=== PATIENT | female | born 1960 | race Caucasian/White ===

== ENCOUNTER 2022-04-13 11:45 | Outpatient (CLI) | payer OTHER, SELFPAY ==
--- NOTE | 2022-04-13 12:35 | ECG_ITS ---
Measurements Intervals [place] Rate: 72 P: 56 SD: 142 QRS: 31 QRSD: 101 T: 42 QT: 373 QTc: 408 Interpretive Statements SINUS RHYTHM BASELINE ARTIFACT- I, III, AVR, AVL, AVF, V1-V6 NORMAL ECG NO PREVIOUS ECG AVAILABLE FOR COMPARISON Electronically Signed On 04-13-2022 14:11:29 PRODUCER ASSISTANT by Hamzah Hinson D.O.
[2022-04-13 13:09] LABS: Basophils Absolute Auto 0.1 K/mm3 (0.0-0.1); Basophils Percent Auto 0.7 % (0.2-1.2); Eosinophils Absolute Auto 0.2 K/mm3 (0-0.3); Eosinophils Percent Auto 2.3 % (0-4.4); Hematocrit 43.8 % (37.0-47.0); Hemoglobin 14.4 g/dL (12.0-15.0); Immature Granulocyte Absolute 0.03 K/mm3 (0.00-0.031); Immature Granulocyte Percent A 0.3 % (0-0.5); Lymphocytes Absolute Auto 2.32 K/mm3 (0.9-3.2); Lymphocytes Percent Auto 26.8 % (18.3-44.2); Mean Corpuscular HGB Conc 32.9 g/dl (32-36); Mean Corpuscular Volume 94.2 fl (80-100); Monocytes Absolute Auto 0.5 K/mm3 (0.1-0.6); Monocytes Percent Auto 6.1 % (2.6-8.5); Neutrophils Absolute Auto 5.5 K/mm3 (1.3-6.7); Neutrophils Percent Auto 63.8 % (45.5-73.1); Platelet Count Result 296 k/mm3 (150-375); Red Blood Count 4.65 M/mm3 (4.2-5.4); Red Cell Distribution Width 13.2 % (11.5-14.5); White Blood Count 8.7 K/mm3 (4.5-10.0)
[2022-04-13 13:22] LABS: Alanine Aminotransferase 20 U/L (6-35); Albumin Level 4.6 g/dL (3.5-5.1); Alkaline Phosphatase 128 U/L (38-126); Anion Gap 9 mmol/L (8-16); Aspartate Amino Transferase 22 U/L (14-36); Bilirubin,Total 0.4 mg/dL (0.2-1.3); Blood Urea Nitrogen 23 mg/dL (7-17); Calcium 9.5 mg/dL (8.4-10.2); Carbon Dioxide 22 mmol/L (22-30); Chloride 107 mmol/L (98-107); Estimated Glomerular Filt Rate > 60; Glucose 91 mg/dL (65-110); Potassium 3.9 mmol/L (3.4-5.0); Sodium 138 mmol/L (137-145)
[2022-04-13 13:37] LABS: Prothrombin Time 12.6 Seconds (11.1-14.7)
[2022-04-13 13:39] LABS: Partial Thromboplastin Time 31.3 SECONDS (22.3-36.8)
== END 2022-04-13 11:46 | disposition home or self-care (01) ==
LOC: ANHSURGERY 11:51
PROVIDERS: Visit Provider Urology
DX: N81.9 Female genital prolapse, unspecified (principal); Z01.818 Encounter for other preprocedural examination
CPT/HCPCS: 36415; 80053; 85025; 85610; 85730; 86850; 86900; 86901; 87086; 93005

== ENCOUNTER 2022-04-26 00:33 | Day surgery (SDC) | payer OTHER, SELFPAY ==
--- NOTE | 2022-04-13 11:46 | PC.NURSE ---
PRE-OP INSTRUCTIONS, PLEASE READ CAREFULLY Report to the Outpatient Waiting Room, entrance under the green pavilion located off [facility], at time _0600_ on date _04/26/22_. Planned Procedure Time: _0730_. Time changes happen often and if your time is changed the preop area will call you the afternoon before. - You and your visitor will be asked to self-screen and do not enter if you have any COVID symptoms. - Only one visitor is requested with a max of two and NO children visitors are allowed at this time. - The patient visitor may be requested to leave or wait in car when not with patient due to distancing restrictions. - A mask is optional within the hospital. Patients may have clear liquids (water, carbonated beverages, clear teas, apple juice) until 3 hours prior to surgery (0430 AM) with a maximum of 20 ounces. - No food from midnight until time of surgery Take the following medications with a SIP of water the morning of surgery: _LEVOTHYROXINE, FLOVENT INHALER, ALBUTEROL INHALER IF NEEDED_ Medications to discontinue per DR. JEAN -_IBUPROFEN, VITAMINS 7 DAYS PRIOR TO SURGERY, Date to take last dose 04/18/22_ Please no make-up, nail [place], hairspray, perfume, deodorant, or body powder the day of surgery. No jewelry (including any body piercings) or valuables the day of surgery, leave them at home. Please take a shower or bath the night before, or the morning of, surgery with an antibacterial soap. Wear comfortable, loose fitting clothing. - Jewelry must be removed prior to entering the operating room. Rings and piercings that are not removed may be cut off. - The hospital will not accept responsibility for valuables. - Please leave all valuables, including medications, at home the day of surgery. If you are going home after surgery, a licensed electric screw driver operator must drive you home. - NO public transportation without another adult if you receive anesthesia. - We recommend that an adult stay with you for 24 hours following discharge. - We also recommend that you do not drive, make important decision, drink alcoholic beverages, or take any drugs that were not prescribed by your health care provider for at least 24 hours after your discharge time. Follow any additional instructions given to you from your surgeon. If you or anyone in your household have experienced Covid symptoms in the past week, please notify your surgeon or the nurse liaison at the phone number below for possible testing. Instructions given to ___PT and asked if any additional questions and then verbalized understanding. Patient advised to call surgeon office or pre surgery nurse liaison [phone] if any additional questions.
[2022-04-13 12:11] VITALS: BP 128/84; PULSE 74; RESP 20; TEMP 36.8; O2SAT 100; BMI 28.6
--- NOTE | 2022-04-23 10:14 | PM.IMHP ---
H&P: HPI History of Present Illness Date/Time: 04/23/22 10:14 Chief Complaint: Prolapse and incontinence Narrative: 62-year-old female with posthysterectomy vault prolapse as well as intrinsic sphincter deficiency Review of Systems Review of Systems: All systems reviewed & are unremarkable except as noted in HPI and below PMFSH Social History Social History Smoking packs per day: 0.75 Smoking cigarettes per day: 15.0 Years smoked: 46 Smoking pack-years: 34.50 Smoking status: Current every day smoker Tobacco type: cigarettes Second hand tobacco smoke exposure: Yes Alcohol intake: never Substance use: never Substance use type: does not use Spiritual care concerns: No Meds Home Medications and Allergies Home Medications Medication Instructions Recorded Confirmed Type albuterol sulfate 90 mcg/actuation 2 puff inhalation QID PRN Wheezing 04/13/22 04/13/22 History aerosol inhaler ascorbic acid (vitamin C) 1,000 mg 1 g PO DAILY 04/13/22 04/13/22 History tablet (Vitamin C) fluticasone propionate 110 2 puff inhalation BID 04/13/22 04/13/22 History mcg/actuation HFA aerosol inhaler (Flovent HFA) ibuprofen 200 mg capsule 800 mg PO BID PRN Pain 04/13/22 04/13/22 History levothyroxine 88 mcg tablet 88 mcg QAM 04/13/22 04/13/22 History ukcvgwyc-lyy-vcwxv ac 400 1 tablet PO DAILY 04/13/22 04/13/22 History mcg-calcium carb 500 mg-vit K1 20 mcg tablet omeprazole magnesium 20 mg 20 mg PO QAM 04/13/22 04/13/22 History tablet,delayed release (Prilosec OTC) sertraline 50 mg tablet 75 mg HS 04/13/22 04/13/22 History tiotropium 2.5 mcg-olodaterol 2.5 2 puff inhalation DAILY 04/13/22 04/13/22 History mcg/actuation mist for inhalation (Stiolto Respimat) Allergies Allergy/AdvReac Type Severity Reaction Status Date / Time Sulfa (Sulfonamide AdvReac Diarrhea Verified 04/13/22 12:03 Antibiotics) Exam Narrative: Fixed urethra Vaginal vault prolapse at +1 Rectocele to the introitus and sbeyond Assessment and Plan Assessment and plan (1) Prolapse of vaginal vault after hysterectomy: Code(s): N99.3 - Prolapse of vaginal vault after hysterectomy Status: Acute (2) Intrinsic sphincter deficiency (ISD): Code(s): N36.42 - Intrinsic sphincter deficiency (ISD) Status: Acute Plan Plan for robotic colpopexy and bulking agent. Understands risks of bleeding, infection, damage surrounding organs, damage to urinary tract, recurrence of prolapse mesh related complications, postoperative voiding dysfunction including incontinence and retention, need for ancillary procedures, hip and leg pain, inability to improve her prolapse or incontinence. Agrees to proceed.
[2022-04-26] VITALS (9 sets, daily range): BP systolic 120–157; BP diastolic 69–98; PULSE 59–93; RESP 12–18; TEMP 36.2–36.4; O2SAT 94–100
--- NOTE | 2022-04-26 07:17 | WPDHPUPDATE1 ---
History and Physical Update Update Date/Time: 04/26/22 07:17 History and Physical has been reviewed, including an updated exam of the patient. There are NO changes in the patient's condition. Risks, benefits, and alternatives have been discussed and questions answered. Patient agrees to proceed with procedure.
--- NOTE | 2022-04-26 07:17 | WPDANESEPPF ---
Anes - Initial Pre Proc Eval Procedure: Operation Date: 04/26/22 07:30 Proposed Procedures p Robotic Sacrocolpopexy, - Austin Mcqueen MD s Cystoscopy Injection Bulking Agent - Austin Mcqueen MD Date/Time: 04/26/22 07:17 Surgeon: Asutin Mcqueen MD Pre Op Diagnosis: vaginal vault prolapse, stress incontinence Patient Data Age: 62 Gender: F Height: 1.74 m Weight: 85.55 kg Last Vital Signs Temp 97.6 F 04/26/22 06:36 Pulse 93 04/26/22 06:36 Resp 18 04/26/22 06:36 BP 143/87 H 04/26/22 06:36 Pulse Ox 99 04/26/22 06:36 O2 Del Method Room Air 04/26/22 06:36 Allergies Allergy/AdvReac Type Severity Reaction Status Date / Time Sulfa (Sulfonamide AdvReac Diarrhea Verified 04/26/22 07:10 Antibiotics) Home Medications Medication Instructions Recorded Confirmed Type albuterol sulfate 90 mcg/actuation 2 puff inhalation QID PRN Wheezing 04/13/22 04/26/22 History aerosol inhaler ascorbic acid (vitamin C) 1,000 mg 1 g PO DAILY 04/13/22 04/26/22 History tablet (Vitamin C) fluticasone propionate 110 2 puff inhalation BID 04/13/22 04/26/22 History mcg/actuation HFA aerosol inhaler (Flovent HFA) ibuprofen 200 mg capsule 800 mg PO BID PRN Pain 04/13/22 04/26/22 History levothyroxine 88 mcg tablet 88 mcg QAM 04/13/22 04/26/22 History pkcdeovn-yyc-yatjh ac 400 1 tablet PO DAILY 04/13/22 04/26/22 History mcg-calcium carb 500 mg-vit K1 20 mcg tablet omeprazole magnesium 20 mg 20 mg PO QAM 04/13/22 04/26/22 History tablet,delayed release (Prilosec OTC) sertraline 50 mg tablet 75 mg HS 04/13/22 04/26/22 History tiotropium 2.5 mcg-olodaterol 2.5 2 puff inhalation DAILY 04/13/22 04/26/22 History mcg/actuation mist for inhalation (Stiolto Respimat) Patient hx anesthesia problems: none Family hx anesthesia problems: none Results Review: All pre-operative results and documents have been reviewed as part of the pre-operative evaluation. [facility] Social History Social History Smoking packs per day: 0.75 Smoking cigarettes per day: 15.0 Years smoked: 46 Smoking pack-years: 34.50 Smoking status: Current every day smoker Tobacco type: cigarettes Second hand tobacco smoke exposure: Yes Alcohol intake: never Substance use: never Substance use type: does not use Living arrangements: alone Spiritual care concerns: No Anes - Eval Final PreProcedure Day of Procedure 04/26/22 07:17 Patient weight: overweight Heart: regular rate and rhythm Lungs: clear to auscultation Airway: Mallampati scale class II Neurological: alert and oriented Last oral intake: >/= 8 hours ASA classification: III Emergent: no Anesthetic plan: proceed Anesthesia type and monitoring: general ETT and standard monitoring Results Review: All pre-operative results and documents have been reviewed as part of the pre-operative evaluation. Informed Consent: The patient's anesthetic plan and its attendant risks and benefits were discussed with the patient/family/POA. Questions were solicited and answers provided to the satisfaction of the patient/family/POA.
[2022-04-26] MEDS: ceFAZolin 2 GM/D5W 50 ML 2 GM/50 ML BAG IVPB (07:30)
--- NOTE | 2022-04-26 09:59 | W.PM.PROC2 ---
Procedure Note - Detailed Date of Procedure 04/26/22 Pre-op Diagnosis vaginal vault prolapse, intrinsic sphincter deficiency Post-op Diagnosis Same Procedure Performed Robotic assisted laparoscopic sacral colpopexy Cystoscopy with suburethral injection of implant material Surgeon Austin Mcqueen MD Anesthesia General Indications This is a woman with post hysterectomy vaginal vault prolapse as well as stress urinary incontinence due to intrinsic sphincter deficiency. She desires surgical correction. She understands risks of bleeding, infection, diskitis, damage to surrounding organs, damage to the bowel or urinary tract, recurrence of prolapse, dyspareunia, vaginal mesh exposure, urinary tract mesh exposure, obstructive voiding requiring secondary procedure or catheterization, hip and leg pain, and other perioperative intraoperative and postoperative complications. She wishes to proceed Findings See below Description of Procedure She was correctly identified. Informed consent obtained. She is brought to the operating room. She was given general anesthesia. She was placed in the lithotomy position. She was given appropriate perioperative antibiotics. She was prepped and draped in a sterile fashion. A time-out performed. I anesthetized the skin 3 fingerbreadths cephalad to the umbilicus. I incised the skin. I located the fascia. I grasped the fascia with Brandyn clamps. I incised the fascia sharply and a Haynes type technique. I placed Vicryl sutures for later fascial closure. I placed a midline trocar. Under direct vision placed 2 additional trocars in the right upper quadrant and 2 additional trocars in the left upper quadrant. She was placed in steep Trendelenburg. The robot was docked. I sat at the console. With the Sizer in the vagina and created a plane on the anterior and posterior vaginal wall for several cm taking great care not to injure the vagina, bladder, or rectum. Of note there was a bit of scarring on the anterior wall. Posterior wall was without significant scarring. I introduced the mesh into the vagina. I sewed the anterior leaflet of mesh on the anterior vaginal wall and posterior leaf of the mesh on the posterior vaginal wall with several sutures of 2 0 [place] taking great care not to go through and through. I then opened up the peritoneum over the sacral promontory. I carried this incision into the cul-de-sac. I freed up the edges for later retroperitonealization of the mesh. I located the anterior longitudinal ligament of the sacrum. I cleaned off any fatty tissues. I then tensioned my mesh appropriately. I did a vaginal exam to ensure prolapse reduction without undue tension. I then sewed the proximal leaflet of mesh onto the ligament with several sutures of 2 0 [place]. I then used a 2 0 Monocryl to meticulously retroperitonealized all mesh. I allowed the colon to go back into its normal anatomic location. There is no sign of impingement. He had an was then exited. Additional fascial sutures were placed and the Fascial sutures were closed. The wounds were all irrigated and closed with 4 O Monocryl and skin glue. She was then repositioned and prepped for cystoscopy. The bladder showed no evidence of surgical artifact or tumor. There was moderate trabeculation and a few cellule formations. Both ureters were seen to excrete clear yellow urine. The urethra was open consistent with intrinsic sphincter deficiency I turned my attention towards the bulking agent. I chose a site 2 cm distal bladder neck. I injected my bulking agent circumferentially. I used 1-1/4 syringe. There was excellent bulking effect. I left her bladder partially full. She was awakened transferred to PACU in stable condition Implants Sacral colpopexy mesh Bulking agent Estimated Blood Loss 20 Packing No Pathology None sent Complications No immediate complications Condition Stable Disposition PACU
[2022-04-26] MEDS: LACTATED RINGERS 1,000 ML 30 ML IV CONT ×2 (10:00)
[2022-04-26] MEDS: fentaNYL CITRATE INJ (*CRX) 100 MCG/2 ML VIAL 25 MCG IV PUSH ×2 (10:43→10:47)
[2022-04-26] MEDS: oxyCODONE HCL (*CRX) 5 MG TAB IR PO (11:45)
[2022-04-26] MEDS: ONDANSETRON INJ 4 MG/2 ML VIAL IV PUSH (12:07)
== END 2022-04-26 12:50 | disposition home or self-care (01) ==
PROVIDERS: Visit Provider Urology
PROC: (CPT 57425; principal; 2022-04-26 07:30)
PROC: 3E0K8GC Introduction of Other Therapeutic Substance into Genitourinary Tract, Via Natural or Artificial Opening Endoscopic (ICD-10-PCS; CPT 51715; 2022-04-26 07:30)
DX: N99.3 Prolapse of vaginal vault after hysterectomy (principal); N36.42 Intrinsic sphincter deficiency (ISD); Z79.51 Long term (current) use of inhaled steroids; F17.210 Nicotine dependence, cigarettes, uncomplicated
CPT/HCPCS: 51715; 57425; A9270; C1781; C9290; J0690; J1100; J1170; J2250; J2405; J2704; J2710; J3010; J7030; J7120; L8606